=== PATIENT | female | born 1970 | race Caucasian/White ===

== ENCOUNTER 2019-06-13 09:08 | Outpatient (CLI) | payer OTHER, BC ==
[2019-06-13 10:02] LABS: BASOPHILS # (AUTO) 0.1 X10'3 (0-0.2); BASOPHILS % (AUTO) 1.8 % (0-1); EOSINOPHILS # (AUTO) 0.2 X10'3 (0-0.9); EOSINOPHILS % (AUTO) 4.2 % (0-6); HEMOGLOBIN 12.8 g/dl (12.0-16.0); LYMPHOCYTES # (AUTO) 1.8 X10'3 (1.1-4.8); LYMPHOCYTES % (AUTO) 37.1 % (21-51); MEAN CORPUSCULAR HEMOGLOBIN 31.3 PG (27.0-31.0); MEAN CORPUSCULAR HGB CONC 33.5 g/dL (33.0-36.5); MEAN CORPUSCULAR VOLUME 93.4 FL (78-98); MONOCYTES # (AUTO) 0.3 X10'3 (0-0.9); MONOCYTES % (AUTO) 6.2 % (2-12); NEUTROPHILS # (AUTO) 2.4 X10'3 (1.8-7.7); NEUTROPHILS % (AUTO) 50.7 % (42-75); PLATELET COUNT 278 X10'3 (140-440); RED BLOOD COUNT 4.07 X10'6 (4.20-5.60); RED CELL DISTRIBUTION WIDTH 12.3 % (11.5-14.5); WHITE BLOOD COUNT 4.7 X10'3 (4.5-11.0)
[2019-06-13 10:24] LABS: ALANINE AMINOTRANSFERASE 21 U/L (12-78); ALBUMIN 3.9 G/DL (3.4-5.0); ALBUMIN/GLOBULIN RATIO 1.2 (1.1-1.5); ALKALINE PHOSPHATASE 47 IU/L (46-116); ANION GAP 6 (8-16); ASPARTATE AMINO TRANSFERASE 19 U/L (10-37); BILIRUBIN,TOTAL 0.3 MG/DL (0.1-1.0); BLOOD UREA NITROGEN 13 MG/DL (7-18); BUN/CREATININE RATIO 15.3 (6.6-38.0); CALCIUM 8.9 MG/DL (8.5-10.1); CHLORIDE 108 MMOL/L (99-107); CHOL/HDL RATIO 3.3 (0.00-4.99); CHOLESTEROL 231 MG/DL (0-200); CREATININE 0.85 MG/DL (0.40-0.90); GLUCOSE 81 MG/DL (70-104); HDL CHOLESTEROL 69 MG/DL (35-60); LDL CHOLESTEROL 141 MG/DL (50-100); POTASSIUM 4.2 MMOL/L (3.5-5.1); SODIUM 147 MMOL/L (135-145); TOTAL CARBON DIOXIDE 33.1 MMOL/L (24-32); TOTAL PROTEIN 7.2 G/DL (6.4-8.2); TRIGLYCERIDES 65 MG/DL (20-135); eGFR 71 ML/MIN
[2019-06-14 13:10] LABS: ESTRADIOL <6.0 pg/mL (.); FSH, SERUM 98.2 mIU/mL (.); LUTEINIZING HORMONE 55.7 mIU/mL (.)
== END 2019-06-13 23:59 | disposition home or self-care (01) ==
LOC: LAB 09:08
PROVIDERS: ATTEND Family Medicine
DX: Z01.419 Encounter for gynecological examination (general) (routine) without abnormal findings (principal); I10 Essential (primary) hypertension; F17.200 Nicotine dependence, unspecified, uncomplicated
CPT/HCPCS: 36415; 80053; 80061; 82306; 82607; 82670; 82746; 83001; 83002; 83036; 84439; 84443; 85025

== ENCOUNTER 2019-12-12 11:53 | Outpatient (CLI) | payer OTHER, BC ==
[2019-12-12 13:27] LABS: BASOPHILS # (AUTO) 0.1 X10'3 (0-0.2); BASOPHILS % (AUTO) 0.9 % (0-1); EOSINOPHILS # (AUTO) 0.1 X10'3 (0-0.9); EOSINOPHILS % (AUTO) 1.9 % (0-6); HEMATOCRIT 40.9 % (35.0-45.0); HEMOGLOBIN 13.6 g/dl (12.0-16.0); LYMPHOCYTES # (AUTO) 2.2 X10'3 (1.1-4.8); LYMPHOCYTES % (AUTO) 38.5 % (21-51); MEAN CORPUSCULAR HEMOGLOBIN 30.5 PG (27.0-31.0); MEAN CORPUSCULAR HGB CONC 33.3 g/dL (33.0-36.5); MEAN CORPUSCULAR VOLUME 91.7 FL (78-98); MEAN PLATELET VOLUME 7.1 FL (7.4-10.4); MONOCYTES # (AUTO) 0.4 X10'3 (0-0.9); NEUTROPHILS # (AUTO) 2.9 X10'3 (1.8-7.7); NEUTROPHILS % (AUTO) 51.7 % (42-75); PLATELET COUNT 295 X10'3 (140-440); RED BLOOD COUNT 4.46 X10'6 (4.20-5.60); RED CELL DISTRIBUTION WIDTH 12.1 % (11.5-14.5); WHITE BLOOD COUNT 5.7 X10'3 (4.5-11.0)
[2019-12-12 13:46] LABS: ALANINE AMINOTRANSFERASE 11 U/L (12-78); ALBUMIN 4.4 G/DL (3.4-5.0); ALBUMIN/GLOBULIN RATIO 1.4 (1.1-1.5); ALKALINE PHOSPHATASE 63 IU/L (46-116); ANION GAP 7 (8-16); ASPARTATE AMINO TRANSFERASE 18 U/L (10-37); BILIRUBIN,TOTAL 0.4 MG/DL (0.1-1.0); BLOOD UREA NITROGEN 15 MG/DL (7-18); CALCIUM 9.2 MG/DL (8.5-10.1); CHLORIDE 104 MMOL/L (99-107); CREATININE 0.79 MG/DL (0.40-0.90); GLUCOSE 95 MG/DL (70-104); POTASSIUM 4.5 MMOL/L (3.5-5.1); SODIUM 139 MMOL/L (135-145); TOTAL CARBON DIOXIDE 28.1 MMOL/L (24-32); TOTAL PROTEIN 7.5 G/DL (6.4-8.2); eGFR 77 ML/MIN
[2019-12-14 10:15] LABS: ESTRADIOL 12.1 pg/mL (.); PROGESTERONE <0.1 ng/mL (.)
[2019-12-14 13:57] LABS: INSULIN 7.5 uIU/mL (2.6-24.9)
[2019-12-15 15:08] LABS: TESTOSTERONE, FREE, DIRECT 0.8 pg/mL (0.0-4.2)
[2019-12-17 14:50] LABS: ESTRONE, SERUM 139 pg/mL (.)
== END 2019-12-12 23:59 | disposition home or self-care (01) ==
LOC: LAB 11:53
PROVIDERS: ATTEND Obstetrics & Gynecology
DX: Z78.0 Asymptomatic menopausal state (principal)
CPT/HCPCS: 36415; 80053; 82670; 82679; 83525; 84144; 84402; 84403; 84439; 84443; 85025

== ENCOUNTER 2020-06-12 09:12 | Outpatient (CLI) | payer BC ==
[2020-06-12 10:45] LABS: BASOPHILS # (AUTO) 0.1 X10'3 (0-0.2); BASOPHILS % (AUTO) 1.2 % (0-1); EOSINOPHILS # (AUTO) 0.2 X10'3 (0-0.9); EOSINOPHILS % (AUTO) 3.4 % (0-6); HEMATOCRIT 38.8 % (35.0-45.0); HEMOGLOBIN 12.9 g/dl (12.0-16.0); LYMPHOCYTES # (AUTO) 1.8 X10'3 (1.1-4.8); LYMPHOCYTES % (AUTO) 35.9 % (21-51); MEAN CORPUSCULAR HEMOGLOBIN 30.8 PG (27.0-31.0); MEAN CORPUSCULAR HGB CONC 33.3 g/dL (33.0-36.5); MEAN CORPUSCULAR VOLUME 92.5 FL (78-98); MEAN PLATELET VOLUME 7.1 FL (7.4-10.4); MONOCYTES # (AUTO) 0.4 X10'3 (0-0.9); MONOCYTES % (AUTO) 7.4 % (2-12); NEUTROPHILS # (AUTO) 2.6 X10'3 (1.8-7.7); NEUTROPHILS % (AUTO) 52.1 % (42-75); PLATELET COUNT 261 X10'3 (140-440); RED CELL DISTRIBUTION WIDTH 12.6 % (11.5-14.5)
[2020-06-12 11:01] LABS: ALANINE AMINOTRANSFERASE 19 U/L (12-78); ALBUMIN 3.9 G/DL (3.4-5.0); ALBUMIN/GLOBULIN RATIO 1.2 (1.1-1.5); ALKALINE PHOSPHATASE 49 IU/L (46-116); ANION GAP 4 (8-16); ASPARTATE AMINO TRANSFERASE 18 U/L (10-37); BILIRUBIN,TOTAL 0.2 MG/DL (0.1-1.0); BLOOD UREA NITROGEN 18 MG/DL (7-18); BUN/CREATININE RATIO 23.1 (6.6-38.0); CALCIUM 8.8 MG/DL (8.5-10.1); CHLORIDE 105 MMOL/L (99-107); CHOLESTEROL 247 MG/DL (0-200); CREATININE 0.78 MG/DL (0.40-0.90); GLUCOSE 86 MG/DL (70-104); HDL CHOLESTEROL 62 MG/DL (35-60); LDL CHOLESTEROL 156 MG/DL (50-100); POTASSIUM 4.6 MMOL/L (3.5-5.1); SODIUM 140 MMOL/L (135-145); TOTAL CARBON DIOXIDE 31.5 MMOL/L (24-32); TOTAL PROTEIN 7.1 G/DL (6.4-8.2); TRIGLYCERIDES 68 MG/DL (20-135); eGFR 78 ML/MIN
[2020-06-12 11:10] LABS: RHEUM FACTOR QUAL REFLEX TITER NEGATIVE (Neg)
== END 2020-06-12 23:59 | disposition home or self-care (01) ==
LOC: LAB 09:12
PROVIDERS: ATTEND Family Medicine
DX: Z00.00 Encounter for general adult medical examination without abnormal findings (principal); M79.10 Myalgia, unspecified site
CPT/HCPCS: 36415; 80053; 80061; 84443; 85025; 85651; 86038; 86430

== ENCOUNTER 2020-09-09 15:42 | Outpatient (CLI) | payer BC | END 2020-09-09 23:59 | disposition home or self-care (01) | LOC: RAD 15:42 | PROVIDERS: ATTEND Family Medicine | DX: M25.511 Pain in right shoulder (principal) | CPT/HCPCS: 73030 ==

== ENCOUNTER 2020-09-12 08:16 | Emergency (ER) | payer BC ==
[~2020-09-12] VITALS: Ht 171.4 cm; Wt 67.0 kg
[2020-09-12 08:19] VITALS: BP 127/99
[2020-09-12] MEDS ORDERED: ketorolac trometh. 30mg/ml inj. IM ONE (09:20)
== END 2020-09-12 09:59 | disposition home or self-care (01) ==
LOC: ER 08:17 → EEVIPCON 08:17 → ER 09:59
DX: G89.29 Other chronic pain (principal); M25.511 Pain in right shoulder; M79.601 Pain in right arm
CPT/HCPCS: 96372; 99283; J1885

== ENCOUNTER 2020-12-12 05:42 | Day surgery (SDC) | payer BC ==
[2020-12-05 11:00] LABS: EOSINOPHILS # (AUTO) 0.1 X10'3 (0-0.9); MEAN CORPUSCULAR HEMOGLOBIN 30.8 PG (27.0-31.0); MEAN CORPUSCULAR HGB CONC 33.3 g/dL (33.0-36.5); MEAN CORPUSCULAR VOLUME 92.6 FL (78-98); MONOCYTES # (AUTO) 0.3 X10'3 (0-0.9); MONOCYTES % (AUTO) 7.1 % (2-12); NEUTROPHILS # (AUTO) 2.1 X10'3 (1.8-7.7); NEUTROPHILS % (AUTO) 44.9 % (42-75); PRE OP HEMATOCRIT 36.6 % (35.0-45.0); PRE OP HEMOGLOBIN 12.2 g/dL (12.0-16.0); PRE OP PLATELET COUNT 262 X10'3 (140-440); RED BLOOD COUNT 3.95 X10'6 (4.20-5.60); RED CELL DISTRIBUTION WIDTH 11.6 % (11.5-14.5)
[2020-12-05 11:19] LABS: ALBUMIN/GLOBULIN RATIO 1.4 (1.1-1.5); ALKALINE PHOSPHATASE 48 IU/L (46-116); BLOOD UREA NITROGEN 17 MG/DL (7-18); BUN/CREATININE RATIO 21.5 (6.6-38.0); CALCIUM 8.7 MG/DL (8.5-10.1); CHLORIDE 105 MMOL/L (99-107); CREATININE 0.79 MG/DL (0.40-0.90); PRE OP ALT 16 U/L (30-65); PRE OP ANION GAP 8 (8-16); PRE OP AST 16 U/L (10-37); PRE OP BILIRUB, TOTAL 0.4 MG/DL (0.0-1.0); PRE OP GLUCOSE 95 MG/DL (70-104); PRE OP POTASSIUM 4.3 MMOL/L (3.4-5.1); PRE OP SODIUM 144 MMOL/L (135-145); TOTAL CARBON DIOXIDE 31.5 MMOL/L (24-32); TOTAL PROTEIN 6.9 G/DL (6.4-8.2); eGFR 76 ML/MIN
[~2020-12-12] VITALS: Ht 170.2 cm; Wt 65.4 kg
[2020-12-12] VITALS (11 sets, daily range): BP systolic 96–113; BP diastolic 47–77
[~2020-12-12 05:42] MED LIST: DULO30CA52 PO; LISI10TA4 PO; famotidine 20mg tablet PO ONE; ringers solution, lacted 1,000 ML IV SCH; scopolamine 1.5mg patch.TD72 TD ONE
[2020-12-12] MEDS ORDERED: triamcinolone acetonide 40mg/ml inj ONE (06:41)
[2020-12-12] MEDS ORDERED: epiNEPHrine 1 mg/ml 30ml MDV ONE (06:41)
[2020-12-12] MEDS ORDERED: LIDOcaine 1% W/epiNEPHrine 1:200,000 10ml vial ONE (06:42)
[2020-12-12] MEDS ORDERED: BUPIVAcaine/PF 2.5 mg/ml (0.25%) 30ml vial ONE (06:42)
[2020-12-12] MEDS ORDERED: cloNIDine hcl/PF 100mcg/ml inj ONE (07:05)
[2020-12-12] MEDS ORDERED: midazolam 2 mg/2 ml injection ONE (07:16)
[2020-12-12] MEDS ORDERED: fentaNYL /PF 50mcg/ml 5ml ampule ONE (07:16)
[2020-12-12] MEDS ORDERED: LIDOcaine 2% 5ml jelly ONE (07:18)
[2020-12-12] MEDS ORDERED: acetaminophen 1,000mg/100ml IV 100 ML IV PRN (07:25)
[2020-12-12] MEDS ORDERED: ondansetron/PF 4mg/2ml inj IV PRN (07:25)
[2020-12-12] MEDS ORDERED: ROPIVAcaine 0.5% (5mg/ml) 30ml vial ONE ×2 (07:25→08:04)
[2020-12-12] MEDS ORDERED: ringers solution, lacted 1,000 ML IV SCH (07:25)
[2020-12-12] MEDS ORDERED: morphine 4 MG/ML inj SYRINge IV PRN (07:25)
[2020-12-12] MEDS ORDERED: meperidine/PF 25mg/ml syringe IV PRN (07:25)
[2020-12-12] MEDS ORDERED: labetalol 20mg/4ml (5mg/ml) syringe IV PRN (07:25)
[2020-12-12] MEDS ORDERED: hydrALAZINE 20mg/ml inj. IV PRN (07:25)
[2020-12-12] MEDS ORDERED: proCHLORperazine 10 MG/2 ml inj IV PRN (07:25)
[2020-12-12] MEDS ORDERED: morphine 2 MG/ML inj. syringe IV PRN (07:25)
[2020-12-12] MEDS ORDERED: HYDROmorphone/PF 0.2 MG/ML SYRINGE IV PRN ×2 (07:25)
[2020-12-12] MEDS ORDERED: LIDOcaine 1%/PF 5ML 10 MG/ML VIAL ONE (08:04)
[2020-12-12] MEDS ORDERED: rocuronium 10mg/ml inj IV ONE (08:04)
[2020-12-12] MEDS ORDERED: ondansetron/PF 4mg/2ml inj ONE (08:04)
[2020-12-12] MEDS ORDERED: LIDOcaine 2% (20mg/ml) 5ml vial ONE (08:04)
[2020-12-12] MEDS ORDERED: ceFAZolin 1000mg inj ONE ×2 (08:04)
[2020-12-12] MEDS ORDERED: propofol inj 20 ML IV ONE (08:04)
[2020-12-12] MEDS ORDERED: dexamethasone sod phosphate 4mg/ml inj. ONE ×2 (08:04)
[2020-12-12] MEDS ORDERED: ePHEDrine 50MG/ML INJ. ONE (08:17)
[2020-12-12] MEDS ORDERED: 0.9 % SODIUM CHLORIDE 10 ML VIAL ONE (08:17)
[2020-12-12] MEDS ORDERED: neostigmine methylsulfate 1 MG/ML 10ml vial ONE (09:06)
[2020-12-12] MEDS ORDERED: glycopyrrolate 0.2mg/ml inj ONE (09:06)
[2020-12-12] MEDS ORDERED: ketorolac trometh. 30mg/ml inj. IV ONE (09:15)
--- NOTE | 2020-12-12 09:15 | NUR ---
Received from OR via [facility] , accompanied by Anesthesiologist TITI and report given by Anesthesiolgist. PATIENT WITH 20G PIV IN LEFT UE RUNNING LR AT 100.DENIES PAIN. RIGHT SHOUDLER DRESSING IS CDI. + CAP REFILL AND RADIAL PULSE PRESENT. DENIES PAIN AT THIS TIME. SLING IN PLACE TO RIGHT UE. 10L MASK ON WITH 100% SATURATIONS. Addendum: 12/12/20 at 6441 by Britton Mahan RN, RN Amended: Links added.
[2020-12-12] MEDS ORDERED: oxyCODONE/APAP 10/325mg tablet PO PRN (09:30)
--- NOTE | 2020-12-12 10:45 | NUR ---
ALL CRITERIA FOR GOING HOME HAS BEEN ACHIEVED. VSS. DENIES PAIN. RIGHT SLING PRESENT AND ARM WITH + RADIAL PULSE PRESENT. WHEELCHAIR RIDE TO VEHICLE WHERE PATIENT GOT INTO VEHICLE WITH CGA. PATIENTS SPOUSE DROVE PATIENT HOME. PRESCRIPTION IN HAND AND SENT TO PHARMACY TO DROP OFF. ALL BELONGINGS WENT WITH PATIENT WELL. VSS Addendum: 12/12/20 at 1159 by Britton Mahan RN, RN Amended: Links added.
== END 2020-12-12 10:45 | disposition home or self-care (01) ==
LOC: PAS 05:42 → EEVIPCON 07:30 → PAS 10:45
PROVIDERS: ATTEND Orthopaedic Surgery
DX: S46.011A Strain of muscle(s) and tendon(s) of the rotator cuff of right shoulder, initial encounter (principal); S43.431A Superior glenoid labrum lesion of right shoulder, initial encounter; M75.41 Impingement syndrome of right shoulder; M75.01 Adhesive capsulitis of right shoulder; M94.211 Chondromalacia, right shoulder; M65.811 Other synovitis and tenosynovitis, right shoulder; G89.18 Other acute postprocedural pain; I10 Essential (primary) hypertension; F41.9 Anxiety disorder, unspecified; J45.909 Unspecified asthma, uncomplicated; Z98.890 Other specified postprocedural states; Z79.899 Other long term (current) drug therapy; Z72.89 Other problems related to lifestyle; Z20.822 Contact with and (suspected) exposure to COVID-19; X58.XXXA Exposure to other specified factors, initial encounter; Y93.89 Activity, other specified; Y92.89 Other specified places as the place of occurrence of the external cause; Y99.8 Other external cause status
CPT/HCPCS: 29823; 29826; 36415; 64415; 76942; 80053; 82948; 85025; 87635; 93005; J0131; J0171; J0690; J0735; J1100; J1885; J2001; J2250; J2405; J2704; J2710; J3010; J3301; J3490; J7120; A4215; A4565; A4618; A6253; A6449; A7000; J2795

== ENCOUNTER 2021-06-18 11:23 | Outpatient (CLI) | payer BC ==
[~2021-06-18 11:23] MED LIST changes: +LISI10TA27 PO; -LISI10TA4 PO; -famotidine 20mg tablet PO ONE; -ringers solution, lacted 1,000 ML IV SCH; -scopolamine 1.5mg patch.TD72 TD ONE
[2021-06-18 11:58] LABS: EOSINOPHILS # (AUTO) 0.1 X10'3 (0-0.9); EOSINOPHILS % (AUTO) 2.7 % (0-6); HEMATOCRIT 39.1 % (35.0-45.0); LYMPHOCYTES # (AUTO) 1.9 X10'3 (1.1-4.8); MEAN CORPUSCULAR HEMOGLOBIN 31.2 PG (27.0-31.0); MEAN CORPUSCULAR HGB CONC 33.3 g/dL (33.0-36.5); MEAN CORPUSCULAR VOLUME 93.6 FL (78-98); MEAN PLATELET VOLUME 7.1 FL (7.4-10.4); MONOCYTES # (AUTO) 0.4 X10'3 (0-0.9); MONOCYTES % (AUTO) 7.6 % (2-12); NEUTROPHILS # (AUTO) 2.4 X10'3 (1.8-7.7); NEUTROPHILS % (AUTO) 49.7 % (42-75); PLATELET COUNT 286 X10'3 (140-440); RED BLOOD COUNT 4.17 X10'6 (4.20-5.60); RED CELL DISTRIBUTION WIDTH 12.5 % (11.5-14.5); WHITE BLOOD COUNT 4.8 X10'3 (4.5-11.0)
[2021-06-19 10:57] LABS: ESTRADIOL <5.0 pg/mL (.); PROGESTERONE <0.1 ng/mL (.)
== END 2021-06-18 23:59 | disposition home or self-care (01) ==
LOC: LAB 11:23
DX: Z13.6 Encounter for screening for cardiovascular disorders (principal); N95.1 Menopausal and female climacteric states; R53.83 Other fatigue; R53.1 Weakness; E55.9 Vitamin D deficiency, unspecified; E53.9 Vitamin B deficiency, unspecified; E03.9 Hypothyroidism, unspecified; Z79.890 Hormone replacement therapy
CPT/HCPCS: 36415; 82670; 84144; 84410; 85025

== ENCOUNTER 2021-07-08 08:30 | Outpatient (CLI) | payer BC ==
[2021-07-08 09:06] LABS: BASOPHILS # (AUTO) 0.1 X10'3 (0-0.2); BASOPHILS % (AUTO) 1.1 % (0-1); EOSINOPHILS # (AUTO) 0.1 X10'3 (0-0.9); HEMATOCRIT 40.2 % (35.0-45.0); HEMOGLOBIN 13.3 g/dl (12.0-16.0); LYMPHOCYTES % (AUTO) 44.2 % (21-51); MEAN CORPUSCULAR HEMOGLOBIN 30.9 PG (27.0-31.0); MEAN CORPUSCULAR HGB CONC 33.1 g/dL (33.0-36.5); MEAN CORPUSCULAR VOLUME 93.2 FL (78-98); MEAN PLATELET VOLUME 7.2 FL (7.4-10.4); MONOCYTES # (AUTO) 0.3 X10'3 (0-0.9); MONOCYTES % (AUTO) 6.7 % (2-12); NEUTROPHILS # (AUTO) 2.1 X10'3 (1.8-7.7); PLATELET COUNT 289 X10'3 (140-440); RED BLOOD COUNT 4.32 X10'6 (4.20-5.60); RED CELL DISTRIBUTION WIDTH 12.3 % (11.5-14.5); WHITE BLOOD COUNT 4.6 X10'3 (4.5-11.0)
[2021-07-08 09:26] LABS: ALANINE AMINOTRANSFERASE 20 U/L (12-78); ALBUMIN 4.1 G/DL (3.4-5.0); ALBUMIN/GLOBULIN RATIO 1.3 (1.1-1.5); ALKALINE PHOSPHATASE 73 IU/L (46-116); ASPARTATE AMINO TRANSFERASE 18 U/L (10-37); BILIRUBIN,TOTAL 0.4 MG/DL (0.1-1.0); BLOOD UREA NITROGEN 18 MG/DL (7-18); BUN/CREATININE RATIO 20.7 (6.6-38.0); CALCIUM 8.5 MG/DL (8.5-10.1); CHLORIDE 104 MMOL/L (99-107); CHOL/HDL RATIO 4.2 (0.00-4.99); CHOLESTEROL 291 MG/DL (0-200); CREATININE 0.87 MG/DL (0.40-0.90); GLUCOSE 94 MG/DL (70-104); HDL CHOLESTEROL 69 MG/DL (35-60); LDL CHOLESTEROL 188 MG/DL (50-100); POTASSIUM 4.4 MMOL/L (3.5-5.1); TOTAL CARBON DIOXIDE 28.4 MMOL/L (24-32); TOTAL PROTEIN 7.3 G/DL (6.4-8.2); TRIGLYCERIDES 80 MG/DL (20-135); eGFR 68 ML/MIN
[2021-07-08 09:33] LABS: ANION GAP 8 (8-16); SODIUM 140 MMOL/L (135-145)
== END 2021-07-08 23:59 | disposition home or self-care (01) ==
LOC: LAB 08:30
PROVIDERS: ATTEND Family Medicine
DX: Z00.00 Encounter for general adult medical examination without abnormal findings (principal); I10 Essential (primary) hypertension
CPT/HCPCS: 36415; 80053; 80061; 84443; 85025

== ENCOUNTER 2021-07-16 13:56 | Outpatient (CLI) | payer BC | END 2021-07-16 23:59 | disposition home or self-care (01) | LOC: RAD 13:56 | PROVIDERS: ATTEND Family Medicine | DX: M47.22 Other spondylosis with radiculopathy, cervical region (principal) | CPT/HCPCS: 72141 ==

== ENCOUNTER 2021-11-09 09:27 | Emergency (ER) | payer BC ==
[~2021-11-09] VITALS: Ht 170.2 cm; Wt 69.6 kg
[2021-11-09 09:31] VITALS: BP 112/65
[2021-11-09] MEDS ORDERED: HYDR-3972 PO (12:08)
== END 2021-11-09 12:25 | disposition home or self-care (01) ==
LOC: EEVIPCON 09:27 → ER 09:27
DX: S00.83XA Contusion of other part of head, initial encounter (principal); S60.222A Contusion of left hand, initial encounter; S60.221A Contusion of right hand, initial encounter; R51.9 Headache, unspecified; Z79.899 Other long term (current) drug therapy; W19.XXXA Unspecified fall, initial encounter; Y93.02 Activity, running; Y92.89 Other specified places as the place of occurrence of the external cause; Y99.8 Other external cause status
CPT/HCPCS: 70450; 70486; 99284

== ENCOUNTER 2022-07-07 11:45 | Outpatient (CLI) | payer BC ==
[2022-07-07 12:42] LABS: BASOPHILS # (AUTO) 0.1 X10'3 (0-0.2); BASOPHILS % (AUTO) 0.9 % (0-1); EOSINOPHILS # (AUTO) 0.1 X10'3 (0-0.9); EOSINOPHILS % (AUTO) 1.1 % (0-6); HEMATOCRIT 40.1 % (35.0-45.0); HEMOGLOBIN 13.5 g/dl (12.0-16.0); LYMPHOCYTES % (AUTO) 34.6 % (21-51); MEAN CORPUSCULAR HEMOGLOBIN 30.8 PG (27.0-31.0); MEAN CORPUSCULAR HGB CONC 33.6 g/dL (33.0-36.5); MEAN CORPUSCULAR VOLUME 91.6 FL (78-98); MEAN PLATELET VOLUME 7.1 FL (7.4-10.4); MONOCYTES # (AUTO) 0.4 X10'3 (0-0.9); MONOCYTES % (AUTO) 6.2 % (2-12); NEUTROPHILS # (AUTO) 3.4 X10'3 (1.8-7.7); NEUTROPHILS % (AUTO) 57.2 % (42-75); PLATELET COUNT 277 X10'3 (140-440); RED BLOOD COUNT 4.38 X10'6 (4.20-5.60); RED CELL DISTRIBUTION WIDTH 13.2 % (11.5-14.5); WHITE BLOOD COUNT 5.9 X10'3 (4.5-11.0)
[2022-07-07 12:56] LABS: ALANINE AMINOTRANSFERASE 19 U/L (12-78); ALBUMIN 4.2 G/DL (3.4-5.0); ALBUMIN/GLOBULIN RATIO 1.2 (1.1-1.5); ALKALINE PHOSPHATASE 56 IU/L (46-116); ANION GAP 9 (8-16); ASPARTATE AMINO TRANSFERASE 16 U/L (10-37); BILIRUBIN,TOTAL 0.5 MG/DL (0.1-1.0); BLOOD UREA NITROGEN 16 MG/DL (7-18); BUN/CREATININE RATIO 19.5 (6.6-38.0); CHLORIDE 102 MMOL/L (99-107); CREATININE 0.82 MG/DL (0.40-0.90); GLUCOSE 98 MG/DL (70-104); SODIUM 140 MMOL/L (135-145); TOTAL CARBON DIOXIDE 28.7 MMOL/L (24-32); TOTAL PROTEIN 7.6 G/DL (6.4-8.2); eGFR 73 ML/MIN
[2022-07-07 13:05] LABS: CHOL/HDL RATIO 4.3 (0.00-4.99); CHOLESTEROL 292 MG/DL (0-200); HDL CHOLESTEROL 68 MG/DL (35-60); LDL CHOLESTEROL 184 MG/DL (50-100); TRIGLYCERIDES 118 MG/DL (20-135)
[2022-07-07 13:54] LABS: RHEUM FACTOR QUAL REFLEX TITER NEGATIVE (Neg)
== END 2022-07-07 23:59 | disposition home or self-care (01) ==
LOC: LAB 11:45
PROVIDERS: ATTEND Nurse Practitioner
DX: R68.82 Decreased libido (principal); M25.50 Pain in unspecified joint; R79.89 Other specified abnormal findings of blood chemistry; E78.5 Hyperlipidemia, unspecified; R53.83 Other fatigue
CPT/HCPCS: 36415; 80053; 80061; 84402; 84403; 84443; 85025; 85651; 86038; 86430

== ENCOUNTER 2023-04-25 09:36 | Outpatient (CLI) | payer BC ==
[2023-04-25 10:04] LABS: BASOPHILS # (AUTO) 0.1 X10'3 (0-0.2); BASOPHILS % (AUTO) 1.3 % (0-1); EOSINOPHILS # (AUTO) 0.1 X10'3 (0-0.9); EOSINOPHILS % (AUTO) 1.7 % (0-6); HEMATOCRIT 42.8 % (35.0-45.0); HEMOGLOBIN 14.3 g/dl (12.0-16.0); LYMPHOCYTES # (AUTO) 1.7 X10'3 (1.1-4.8); LYMPHOCYTES % (AUTO) 33.3 % (21-51); MEAN CORPUSCULAR HEMOGLOBIN 31.1 PG (27.0-31.0); MEAN CORPUSCULAR HGB CONC 33.5 g/dL (33.0-36.5); MEAN CORPUSCULAR VOLUME 92.8 FL (78-98); MEAN PLATELET VOLUME 6.9 FL (7.4-10.4); MONOCYTES # (AUTO) 0.4 X10'3 (0-0.9); MONOCYTES % (AUTO) 7.8 % (2-12); NEUTROPHILS # (AUTO) 2.9 X10'3 (1.8-7.7); NEUTROPHILS % (AUTO) 55.9 % (42-75); PLATELET COUNT 268 X10'3 (140-440); RED BLOOD COUNT 4.61 X10'6 (4.20-5.60); RED CELL DISTRIBUTION WIDTH 12.4 % (11.5-14.5); WHITE BLOOD COUNT 5.2 X10'3 (4.5-11.0)
[2023-04-25 10:40] LABS: ALANINE AMINOTRANSFERASE 22 U/L (12-78); ALBUMIN 4.3 G/DL (3.4-5.0); ALBUMIN/GLOBULIN RATIO 1.3 (1.1-1.5); ALKALINE PHOSPHATASE 54 IU/L (46-116); ANION GAP 9 (8-16); ASPARTATE AMINO TRANSFERASE 22 U/L (10-37); BILIRUBIN,TOTAL 0.7 MG/DL (0.1-1.0); BLOOD UREA NITROGEN 10 MG/DL (7-18); BUN/CREATININE RATIO 10.9 (10.0-20.0); CALCIUM 9.3 MG/DL (8.5-10.1); CHLORIDE 104 MMOL/L (99-107); CHOL/HDL RATIO 3.9 (0.00-4.99); CHOLESTEROL 279 MG/DL (0-200); CREATININE 0.92 MG/DL (0.40-0.90); GLUCOSE 104 MG/DL (70-104); HDL CHOLESTEROL 71 MG/DL (35-60); LDL CHOLESTEROL 160 MG/DL (50-100); POTASSIUM 4.2 MMOL/L (3.5-5.1); SODIUM 143 MMOL/L (135-145); TOTAL CARBON DIOXIDE 30.3 MMOL/L (24-32); TOTAL PROTEIN 7.5 G/DL (6.4-8.2); TRIGLYCERIDES 97 MG/DL (20-135); eGFR 64 ML/MIN
== END 2023-04-25 23:59 | disposition home or self-care (01) ==
LOC: LAB 09:36
PROVIDERS: ATTEND Nurse Practitioner
DX: R79.89 Other specified abnormal findings of blood chemistry (principal); E78.5 Hyperlipidemia, unspecified; R53.83 Other fatigue
CPT/HCPCS: 36415; 80053; 80061; 84443; 85025

== ENCOUNTER 2023-07-12 11:16 | Outpatient (CLI) | payer BC | END 2023-07-12 23:59 | disposition home or self-care (01) | LOC: RAD 11:16 | PROVIDERS: ATTEND Podiatrist Foot & Ankle Surgery | DX: G57.62 Lesion of plantar nerve, left lower limb (principal); M25.872 Other specified joint disorders, left ankle and foot | CPT/HCPCS: 73718 ==

== ENCOUNTER 2023-10-19 05:48 | Day surgery (SDC) | payer BC ==
[2023-10-13 16:28] LABS: BILIRUBIN,URINE NEGATIVE (Neg); CLARITY,URINE CLEAR (Clear); COLOR,URINE YELLOW (Yellow); GLUCOSE, URINE NEGATIVE (Neg); KETONES,URINE NEGATIVE (Neg); LEUKOCYTE ESTERASE ,URINE NEGATIVE (Neg); NITRITES, URINE NEGATIVE (Neg); OCCULT BLOOD,URINE SMALL (Neg); PH,URINE 6.5 (4.8-8.0); PROTEIN,URINE NEGATIVE (Neg); UROBILINOGEN,URINE 0.2 E.U/dL (0.2-1.0)
[2023-10-13 16:31] LABS: BASOPHILS % (AUTO) 0.6 % (0-1); EOSINOPHILS # (AUTO) 0.1 X10'3 (0-0.9); EOSINOPHILS % (AUTO) 1.7 % (0-6); HEMATOCRIT 41.4 % (35.0-45.0); HEMOGLOBIN 13.8 g/dl (12.0-16.0); LYMPHOCYTES # (AUTO) 2.2 X10'3 (1.1-4.8); LYMPHOCYTES % (AUTO) 35.1 % (21-51); MEAN CORPUSCULAR HEMOGLOBIN 31.8 PG (27.0-31.0); MEAN CORPUSCULAR HGB CONC 33.5 g/dL (33.0-36.5); MEAN CORPUSCULAR VOLUME 94.9 FL (78-98); MEAN PLATELET VOLUME 7.1 FL (7.4-10.4); MONOCYTES # (AUTO) 0.5 X10'3 (0-0.9); NEUTROPHILS # (AUTO) 3.4 X10'3 (1.8-7.7); NEUTROPHILS % (AUTO) 54.6 % (42-75); PLATELET COUNT 272 X10'3 (140-440); RED BLOOD COUNT 4.36 X10'6 (4.20-5.60); RED CELL DISTRIBUTION WIDTH 11.7 % (11.5-14.5); WHITE BLOOD COUNT 6.3 X10'3 (4.5-11.0)
[2023-10-13 16:33] LABS: UA COLLECTION TYPE CLN CATCH MIDSTREAM
[2023-10-13 16:34] LABS: BACTERIA,URINE NONE SEEN /HPF (Neg); SQUAMOUS EPITHELIAL CELL,UR FEW /LPF (FEW); WBC,URINE 0-4 /HPF (0-4)
[2023-10-13 16:45] LABS: ALANINE AMINOTRANSFERASE 22 U/L (12-78); ALBUMIN 3.8 G/DL (3.4-5.0); ALBUMIN/GLOBULIN RATIO 1.1 (1.1-1.5); ALKALINE PHOSPHATASE 84 IU/L (46-116); ANION GAP 5 (8-16); ASPARTATE AMINO TRANSFERASE 21 U/L (10-37); BILIRUBIN,TOTAL 0.2 MG/DL (0.1-1.0); BLOOD UREA NITROGEN 24 MG/DL (7-18); BUN/CREATININE RATIO 29.3 (10.0-20.0); CALCIUM 8.9 MG/DL (8.5-10.1); CHLORIDE 103 MMOL/L (99-107); CREATININE 0.82 MG/DL (0.40-0.90); GLUCOSE 102 MG/DL (70-104); POTASSIUM 4.3 MMOL/L (3.5-5.1); SODIUM 139 MMOL/L (135-145); TOTAL CARBON DIOXIDE 31.1 MMOL/L (24-32); TOTAL PROTEIN 7.2 G/DL (6.4-8.2); eGFR 72 ML/MIN
[2023-10-19] VITALS (10 sets, daily range): BP systolic 96–134; BP diastolic 61–91; PULSE 79–99; RESP 11–19; TEMP 97.3; O2SAT 95–99
[~2023-10-19] VITALS: Ht 170.2 cm; Wt 72.0 kg
[~2023-10-19 05:48] MED LIST changes: +ALPR1TAB2 PO; +ceFAZolin 1GM/D5W- ADD-VANTAGE 50 ML IV ONE; +cefazolin 2gm/D5W 100mL 100 ML IV ONE; +famotidine 20mg tablet PO ONE; +ringers solution, lacted 1,000 ML IV SCH
[2023-10-19] MEDS ORDERED: bacitracin 15gm ointment TP ONE ×2 (06:41→06:42)
[2023-10-19] MEDS ORDERED: BUPIVAcaine/PF 2.5mg/ml (0.25%) 10ml vial ONE (06:41)
[2023-10-19] MEDS ORDERED: BUPIVAcaine/PF 2.5mg/ml (0.25%) 10ml vial IJ ONE (07:00)
[2023-10-19] MEDS ORDERED: dexamethasone 4mg/ml inj IM ONE (07:00)
[2023-10-19] MEDS ORDERED: scopolamine 1MG/72H patch 1 PATCH PATCH.TD.3 TD ONE (07:20)
[2023-10-19] MEDS ORDERED: sevoflurane 250ml liquid IH ONE (07:31)
[2023-10-19] MEDS ORDERED: morphine 2 MG/ML inj. syringe IV PRN (07:35)
[2023-10-19] MEDS ORDERED: hydrALAZINE 20mg/ml inj. IV PRN (07:35)
[2023-10-19] MEDS ORDERED: ringers solution, lacted 1,000 ML IV SCH (07:35)
[2023-10-19] MEDS ORDERED: acetaminophen 1,000mg/100ml IV 100 ML IV ONE (07:35)
[2023-10-19] MEDS ORDERED: labetalol 20mg/4ml (5mg/ml) syringe IV PRN (07:35)
[2023-10-19] MEDS ORDERED: proCHLORperazine 10 MG/2 ml inj IV PRN (07:35)
[2023-10-19] MEDS ORDERED: meperidine/PF 25mg/ml syringe IV PRN (07:35)
[2023-10-19] MEDS ORDERED: morphine 4 MG/ML inj SYRINge IV PRN (07:35)
[2023-10-19] MEDS ORDERED: ketorolac trometh. 30mg/ml inj. IV ONE (07:35)
[2023-10-19] MEDS ORDERED: HYDROmorphone/PF 0.2 MG/ML SYRINGE IV PRN ×2 (07:35)
[2023-10-19] MEDS ORDERED: ondansetron/PF 4mg/2ml inj IV PRN (07:35)
[2023-10-19] MEDS ORDERED: fentaNYL/PF 50MCG/1 ML 2ML syringe ONE (07:40)
[2023-10-19] MEDS ORDERED: midazolam 1 mg/ML 2ml injection ONE (07:48)
[2023-10-19] MEDS ORDERED: ondansetron/PF 4mg/2ml inj ONE (07:49)
[2023-10-19] MEDS ORDERED: propofol inj 20 ML IV ONE (07:49)
[2023-10-19] MEDS ORDERED: dexamethasone sod phosphate 4mg/ml inj. ONE (07:49)
[2023-10-19] MEDS ORDERED: LIDOcaine 2% (20mg/ml) 5ml vial ONE (07:49)
[2023-10-19] MEDS ORDERED: HYDROcodone/acetaminophen 5mg/325mg tablet PO ONE (09:40)
== END 2023-10-19 10:06 | disposition home or self-care (01) ==
LOC: PAS 05:48
PROVIDERS: ATTEND Podiatrist Foot & Ankle Surgery
DX: G57.82 Other specified mononeuropathies of left lower limb (principal); I10 Essential (primary) hypertension; F41.9 Anxiety disorder, unspecified; F32.A Depression, unspecified; Z79.899 Other long term (current) drug therapy; Z98.890 Other specified postprocedural states; Z72.89 Other problems related to lifestyle
CPT/HCPCS: 28080; 36415; 80053; 81001; 82948; 85025; A6223; J0131; J0690; J1100; J1885; J2250; J2405; J2704; J3010; J3490; J7030; J7120; Z7506; Z7508; Z7512; A4215; A4615; A4618; A6449; A7000

== ENCOUNTER → 2023-12-28 | Outpatient (CLI) | payer BC ==
[~2023-12-28] MED LIST changes: -ceFAZolin 1GM/D5W- ADD-VANTAGE 50 ML IV ONE; -cefazolin 2gm/D5W 100mL 100 ML IV ONE; -famotidine 20mg tablet PO ONE; -ringers solution, lacted 1,000 ML IV SCH
[2023-12-28 08:53] LABS: BASOPHILS % (AUTO) 0.8 % (0-1); EOSINOPHILS % (AUTO) 1.1 % (0-6); HEMATOCRIT 41.2 % (35.0-45.0); LYMPHOCYTES # (AUTO) 1.6 X10'3 (1.1-4.8); LYMPHOCYTES % (AUTO) 36.3 % (21-51); MEAN CORPUSCULAR HGB CONC 33.9 g/dL (33.0-36.5); MEAN CORPUSCULAR VOLUME 94.6 FL (78-98); MEAN PLATELET VOLUME 6.7 FL (7.4-10.4); MONOCYTES # (AUTO) 0.4 X10'3 (0-0.9); MONOCYTES % (AUTO) 7.8 % (2-12); NEUTROPHILS # (AUTO) 2.5 X10'3 (1.8-7.7); PLATELET COUNT 260 X10'3 (140-440); RED BLOOD COUNT 4.36 X10'6 (4.20-5.60); RED CELL DISTRIBUTION WIDTH 12.6 % (11.5-14.5); WHITE BLOOD COUNT 4.5 X10'3 (4.5-11.0)
[2023-12-28 09:17] LABS: ALANINE AMINOTRANSFERASE 22 U/L (12-78); ALBUMIN 4.2 G/DL (3.4-5.0); ALBUMIN/GLOBULIN RATIO 1.3 (1.1-1.5); ALKALINE PHOSPHATASE 56 IU/L (46-116); ANION GAP 5 (8-16); ASPARTATE AMINO TRANSFERASE 19 U/L (10-37); BILIRUBIN,TOTAL 0.5 MG/DL (0.1-1.0); BLOOD UREA NITROGEN 12 MG/DL (7-18); CALCIUM 8.3 MG/DL (8.5-10.1); CHLORIDE 105 MMOL/L (99-107); CHOL/HDL RATIO 4.2 (0.00-4.99); CHOLESTEROL 300 MG/DL (0-200); CREATININE 0.92 MG/DL (0.40-0.90); GLUCOSE 97 MG/DL (70-104); HDL CHOLESTEROL 72 MG/DL (35-60); LDL CHOLESTEROL 159 MG/DL (50-100); POTASSIUM 4.2 MMOL/L (3.5-5.1); SODIUM 140 MMOL/L (135-145); THYROID STIMULATING HORMONE 0.51 ulU/ml (0.34-4.50); TOTAL CARBON DIOXIDE 29.8 MMOL/L (24-32); TOTAL PROTEIN 7.4 G/DL (6.4-8.2); TRIGLYCERIDES 139 MG/DL (20-135); eGFR 63 ML/MIN
== END | disposition home or self-care (01) ==
LOC: LAB 07:58
PROVIDERS: ATTEND Nurse Practitioner
DX: E78.5 Hyperlipidemia, unspecified (principal); N95.1 Menopausal and female climacteric states; R68.82 Decreased libido
CPT/HCPCS: 36415; 80053; 80061; 82670; 84144; 84402; 84403; 84443; 85025

== ENCOUNTER 2024-08-31 18:02 | Outpatient (CLI) | payer BC ==
[2024-08-31 18:35] LABS: BASOPHILS # (AUTO) 0.1 X10'3 (0-0.2); BASOPHILS % (AUTO) 0.8 % (0-1); EOSINOPHILS # (AUTO) 0.1 X10'3 (0-0.9); EOSINOPHILS % (AUTO) 1.2 % (0-6); HEMATOCRIT 37.1 % (35.0-45.0); HEMOGLOBIN 12.3 g/dl (12.0-16.0); LYMPHOCYTES # (AUTO) 2.7 X10'3 (1.1-4.8); LYMPHOCYTES % (AUTO) 42.1 % (21-51); MEAN CORPUSCULAR HEMOGLOBIN 31.1 PG (27.0-31.0); MEAN CORPUSCULAR HGB CONC 33.1 g/dL (33.0-36.5); MONOCYTES # (AUTO) 0.5 X10'3 (0-0.9); NEUTROPHILS # (AUTO) 3.2 X10'3 (1.8-7.7); NEUTROPHILS % (AUTO) 48.9 % (42-75); PLATELET COUNT 295 X10'3 (140-440); RED BLOOD COUNT 3.94 X10'6 (4.20-5.60); RED CELL DISTRIBUTION WIDTH 12.4 % (11.5-14.5); WHITE BLOOD COUNT 6.5 X10'3 (4.5-11.0)
[2024-09-03 07:09] LABS: ESTRADIOL <5.0 pg/mL (.); PROGESTERONE <0.1 ng/mL (.); TESTOSTERONE, SERUM <3 ng/dL (4-50)
== END 2024-08-31 23:59 | disposition home or self-care (01) ==
LOC: LAB 18:02
PROVIDERS: ATTEND Nurse Practitioner
DX: R53.83 Other fatigue (principal); N95.1 Menopausal and female climacteric states; R68.82 Decreased libido
CPT/HCPCS: 36415; 82670; 84144; 84402; 84403; 84550; 85025

== ENCOUNTER 2024-12-13 14:57 | Outpatient (CLI) | payer BC ==
[2024-12-13 15:31] LABS: BASOPHILS # (AUTO) 0.1 X10'3 (0-0.2); EOSINOPHILS # (AUTO) 0.1 X10'3 (0-0.9); EOSINOPHILS % (AUTO) 1.8 % (0-6); HEMATOCRIT 40.2 % (35.0-45.0); HEMOGLOBIN 13.4 g/dl (12.0-16.0); LYMPHOCYTES # (AUTO) 1.9 X10'3 (1.1-4.8); MEAN CORPUSCULAR HEMOGLOBIN 31.5 PG (27.0-31.0); MEAN CORPUSCULAR HGB CONC 33.2 g/dL (33.0-36.5); MEAN CORPUSCULAR VOLUME 94.7 FL (78-98); MONOCYTES # (AUTO) 0.4 X10'3 (0-0.9); NEUTROPHILS # (AUTO) 2.7 X10'3 (1.8-7.7); NEUTROPHILS % (AUTO) 52.2 % (42-75); PLATELET COUNT 287 X10'3 (140-440); RED BLOOD COUNT 4.25 X10'6 (4.20-5.60); RED CELL DISTRIBUTION WIDTH 12.5 % (11.5-14.5); WHITE BLOOD COUNT 5.1 X10'3 (4.5-11.0)
[2024-12-15 11:15] LABS: DEHYDROEPIANDROSTERONE SULFATE 24.5 ug/dL (29.4-220.5); ESTRADIOL 33.8 pg/mL (.); PROGESTERONE 0.5 ng/mL (.); TESTOSTERONE, SERUM 104 ng/dL (4-50)
== END 2024-12-13 23:59 | disposition home or self-care (01) ==
LOC: LAB 14:57
PROVIDERS: ATTEND Nurse Practitioner
DX: Z51.81 Encounter for therapeutic drug level monitoring (principal); N95.1 Menopausal and female climacteric states; R53.83 Other fatigue; R68.82 Decreased libido
CPT/HCPCS: 36415; 82627; 82670; 84144; 84402; 84403; 85025

== ENCOUNTER 2025-01-20 13:37 | Outpatient (CLI) | payer BC | END 2025-01-20 23:59 | disposition home or self-care (01) | LOC: RAD 13:37 | PROVIDERS: ATTEND Nurse Practitioner | DX: M18.11 Unilateral primary osteoarthritis of first carpometacarpal joint, right hand (principal); M79.641 Pain in right hand | CPT/HCPCS: 73130 ==

== ENCOUNTER 2025-01-21 09:51 | Outpatient (CLI) | payer BC ==
[2025-01-21 10:24] LABS: BASOPHILS % (AUTO) 0.7 % (0-1); EOSINOPHILS # (AUTO) 0.1 X10'3 (0-0.9); EOSINOPHILS % (AUTO) 1.3 % (0-6); HEMATOCRIT 42.6 % (35.0-45.0); HEMOGLOBIN 14.2 g/dl (12.0-16.0); LYMPHOCYTES # (AUTO) 1.9 X10'3 (1.1-4.8); LYMPHOCYTES % (AUTO) 36.1 % (21-51); MEAN CORPUSCULAR HEMOGLOBIN 31.2 PG (27.0-31.0); MEAN CORPUSCULAR HGB CONC 33.3 g/dL (33.0-36.5); MEAN CORPUSCULAR VOLUME 93.6 FL (78-98); MEAN PLATELET VOLUME 6.9 FL (7.4-10.4); MONOCYTES # (AUTO) 0.4 X10'3 (0-0.9); MONOCYTES % (AUTO) 8.4 % (2-12); NEUTROPHILS # (AUTO) 2.8 X10'3 (1.8-7.7); NEUTROPHILS % (AUTO) 53.5 % (42-75); PLATELET COUNT 272 X10'3 (140-440); RED BLOOD COUNT 4.55 X10'6 (4.20-5.60); RED CELL DISTRIBUTION WIDTH 12.5 % (11.5-14.5); WHITE BLOOD COUNT 5.3 X10'3 (4.5-11.0)
[2025-01-21 10:51] LABS: ALANINE AMINOTRANSFERASE 18 U/L (12-78); ALBUMIN 4.1 G/DL (3.4-5.0); ALBUMIN/GLOBULIN RATIO 1.2 (1.1-1.5); ALKALINE PHOSPHATASE 56 IU/L (46-116); ANION GAP 5 (8-16); ASPARTATE AMINO TRANSFERASE 14 U/L (10-37); BILIRUBIN,TOTAL 0.6 MG/DL (0.1-1.0); BLOOD UREA NITROGEN 14 MG/DL (7-18); BUN/CREATININE RATIO 19.2 (10.0-20.0); CALCIUM 8.8 MG/DL (8.5-10.1); CHLORIDE 104 MMOL/L (99-107); CHOL/HDL RATIO 3.8 (0.00-4.99); CHOLESTEROL 240 MG/DL (0-200); CREATININE 0.73 MG/DL (0.40-0.90); GLUCOSE 98 MG/DL (70-104); HDL CHOLESTEROL 64 MG/DL (35-60); LDL CHOLESTEROL 141 MG/DL (50-100); POTASSIUM 4.3 MMOL/L (3.5-5.1); SODIUM 141 MMOL/L (135-145); THYROID STIMULATING HORMONE 0.38 ulU/ml (0.34-4.50); TOTAL CARBON DIOXIDE 32.3 MMOL/L (24-32); TOTAL PROTEIN 7.6 G/DL (6.4-8.2); TRIGLYCERIDES 96 MG/DL (20-135); eGFR 82 ML/MIN
== END 2025-01-21 23:59 | disposition home or self-care (01) ==
LOC: LAB 09:51
PROVIDERS: ATTEND Nurse Practitioner
DX: R68.82 Decreased libido (principal); R53.83 Other fatigue; N95.1 Menopausal and female climacteric states; E78.5 Hyperlipidemia, unspecified
CPT/HCPCS: 36415; 80053; 80061; 84402; 84403; 84443; 85025

== ENCOUNTER 2025-02-22 06:55 | Outpatient (CLI) | payer BC ==
[~2025-02-22 06:55] MED LIST changes: +LIDOcaine 1%/PF 5ML 10 MG/ML VIAL ONE; +[UNRECOGNIZED DRUG - OTHER] IM ONE; +iohexol 300 MG/1 ML 50ml polymer ONE
--- NOTE | 2025-02-22 07:55 | RADIOLOGY REPORT ---
C-ARM FLUOROSCOPY: PROCEDURE: Right CMC injection FLUOROSCOPY TIME: 0.1 minute DAP: 1 mgy FINDINGS: Spot intraoperative C arm radiographs demonstrating right CMC injection. IMPRESSION: Please refer to surgical report for detailed findings.
== END 2025-02-22 23:59 | disposition home or self-care (01) ==
LOC: RAD 06:55
PROVIDERS: ATTEND Family Medicine Sports Medicine
DX: M79.641 Pain in right hand (principal); M18.11 Unilateral primary osteoarthritis of first carpometacarpal joint, right hand; Z79.899 Other long term (current) drug therapy; Z98.890 Other specified postprocedural states; Z72.89 Other problems related to lifestyle
CPT/HCPCS: 25246; J0702; J3490; Q9967

== ENCOUNTER 2025-06-04 15:11 | Outpatient (CLI) | payer BC ==
[~2025-06-04 15:11] MED LIST changes: -LIDOcaine 1%/PF 5ML 10 MG/ML VIAL ONE; -[UNRECOGNIZED DRUG - OTHER] IM ONE; -iohexol 300 MG/1 ML 50ml polymer ONE
--- NOTE | 2025-06-05 14:15 | RADIOLOGY REPORT ---
CLINICAL HISTORY: Right hand pain. Osteoarthritis of 1st carpometacarpal joint. TECHNIQUE: Multi sequence multi planar MRI images of the right hand were obtained without contrast, focused on the right thumb. COMPARISON: Radiographs of the right hand dated 01/20/2025. FINDINGS: There is signal loss on some sequences, particularly the fluid sensitive sequences, limiti ng evaluation. No evidence of acute fracture. Moderate arthritic changes are seen at the 1st carpomet acarpal joint with joint space narrowing and marginal osteophytes. There is mild dorsal subluxation o f the 1st metacarpal with respect to the trapezium. Limited evaluation of the ligamentous structures of the 1st carpometacarpal joint due to the signal loss on the fluid sensitive sequences. Flexor and extensor tendons appear intact. IMPRESSION: 1. Examination is limited due to the reasons described above. 2. Moderate arthritic changes of the 1st carpometacarpal joint. No acute bony abnormality identified. Mild dorsal subluxation of the 1st metacarpal with respect to the trapezium.
--- NOTE | 2025-06-05 19:01 | RADIOLOGY REPORT ---
EXAM: MR MRI UPPER EXTREMITY RIGHT INDICATION: Pain TECHNIQUE: Multisequence, multiplanar MRI of the right wrist was performed in the absence of gadolini um contrast material. Additional sequences were obtained and interpreted in conjunction with capri lara from 06/04/25 COMPARISON: MR MRI UPPER EXTREMITY RIGHT on DOS: 06/04/25 FINDINGS: CARPAL TUNNEL: The traversing flexor tendons are intact. Normal thickness of the overlying flexor ret inaculum. Normal signal intensity and morphology of the median nerve. FLEXOR TENDONS: Intact without tenosynovitis. EXTENSOR TENDONS: Intact without tenosynovitis. TRIANGULAR FIBROCARTILAGE: Intact. EXTRINSIC/INTRINSIC LIGAMENTS: Intact. JOINTS: Trace 1st carpometacarpal joint joint effusion. Severe asymmetric degenerative change of the 1st carpometacarpal joint. Severe joint space loss with the appearance of [id number] contact of the more volar aspect of the 1st carpometacarpal joint with underlying subchondral sclerosis of the base of the 1st metacarpal. As detailed on prior report, question minimal dorsal positioning/subluxation of the 1st metacarpal relative to the trapezium, which may be exaggerated secondary to patient positi oning BONES: Osteitis of the base of the 1st metacarpal and opposing osteitis of the trapezium. Subchondral cyst of the dorsal 2nd metacarpal head MUSCLES: Normal. NEUROVASCULAR: Normal signal intensity and morphology of the ulnar nerve at Guyon's canal. The radial neurovascular bundle is intact. OTHER: The surrounding soft tissues are unremarkable. IMPRESSION: 1. Severe degenerative change of the 1st carpometacarpal joint likely compatible with primary osteoar throsis.
== END 2025-06-04 23:59 | disposition home or self-care (01) ==
LOC: MRI 15:11
PROVIDERS: ATTEND Family Medicine Sports Medicine
DX: M18.11 Unilateral primary osteoarthritis of first carpometacarpal joint, right hand (principal); M25.841 Other specified joint disorders, right hand; M86.8X4 Other osteomyelitis, hand; M79.641 Pain in right hand; M25.441 Effusion, right hand; M77.9 Enthesopathy, unspecified
CPT/HCPCS: 73218

== ENCOUNTER 2025-06-21 06:38 | Outpatient (CLI) | payer BC ==
[~2025-06-21] VITALS: Ht 170.2 cm; Wt 70.3 kg
[2025-06-21] MEDS ORDERED: [UNRECOGNIZED DRUG - OTHER] IM ONE (06:40)
--- NOTE | 2025-06-21 09:27 | RADIOLOGY REPORT ---
ANGIO ARTHROGRAM (A) Date: 06/21/2025 07:18 AM Clinical History: PAIN IN RIGHT HAND Comparison: MR MRI UPPER EXTREMITY RIGHT on DOS: 06/05/25, MR MRI UPPER EXTREMITY RIGHT on DOS: 06/04/25, ANGIO ARTHROGRAM (A) on DOS: 02/22/25, MR MRI LOWER EXTREMITY LEFT on DOS: 07/12/23, SHOULDER, COMPLET E (MIN 2 VWS) on DOS: 09/09/20 Procedure: Verbal and written informed consent were obtained from the patient for the procedure of right hand f luoroscopically guided arthrogram, after the procedure, risks, and benefits of the procedure were exp lained to the patient. Risks include bleeding, infection, reaction to injected medications, and valentin ge to surrounding anatomic structures. The patient's questions were answered. The patient's most re cent medical history was reviewed. A time out was performed to verify the patient's name, date of , and correct location of the pro cedure, prior to initiation of the procedure. The patient was placed supine on the fluoroscopic table and the area overlying the right hand was pr epped and draped in the usual sterile fashion. Approximately 5 ml of buffered 1% lidocaine were infu sed for local anesthesia. Under direct fluoroscopic guidance, a 22 gauge spinal needle was advanced percutaneously into the right hand . Approximately 7 ml of a mixture of 6 ml of bupivicaine, 5 ml of Omnipaque 300 contrast, and 0.1 ml of gadolinium contrast were injected. A spot film was obtained t o document placement of the contrast within the joint capsule. The needle was removed. The patient tolerated the procedure well. There were no immediate complications. Home-care instruct ions were reviewed with the patient prior to the patient's discharge from the fluoroscopy suite. The patient verbally affirmed understanding of these instructions. Impression: Technically successful fluoroscopically guided right hand arthrogram. The patient was transported t o MRI for further imaging at the completion of the procedure. procedure y dr barrios.
== END 2025-06-21 23:59 | disposition home or self-care (01) ==
LOC: RAD 06:38
PROVIDERS: ATTEND Family Medicine Sports Medicine
DX: M18.11 Unilateral primary osteoarthritis of first carpometacarpal joint, right hand (principal); M79.641 Pain in right hand; M77.9 Enthesopathy, unspecified; Z79.899 Other long term (current) drug therapy; Z98.890 Other specified postprocedural states
CPT/HCPCS: 25246; 77002; J0702

== ENCOUNTER 2025-08-30 09:21 | Outpatient (CLI) | payer BC ==
[2025-08-30 10:31] LABS: MEAN PLATELET VOLUME 6.9 FL (7.4-10.4); RED CELL DISTRIBUTION WIDTH 12.1 % (11.5-14.5)
[2025-08-30 11:01] LABS: CHOL/HDL RATIO 4.6 (0.00-4.99); CREATININE 0.77 MG/DL (0.40-0.90); LDL CHOLESTEROL 185 MG/DL (50-100); TOTAL CARBON DIOXIDE 29.6 MMOL/L (24-32); eGFR 77 ML/MIN
[2025-09-01 06:20] LABS: ESTRADIOL 9.9 pg/mL (.); PROGESTERONE 0.3 ng/mL (.); TESTOSTERONE, SERUM 178 ng/dL (4-50)
[2025-09-03 15:21] LABS: TESTOSTERONE, FREE, DIRECT 2.2 pg/mL (0.0-4.2)
== END 2025-08-30 23:59 | disposition home or self-care (01) ==
LOC: LAB 09:21
PROVIDERS: ATTEND Nurse Practitioner
DX: E78.5 Hyperlipidemia, unspecified (principal); N95.1 Menopausal and female climacteric states; R68.82 Decreased libido; R53.83 Other fatigue; Z51.81 Encounter for therapeutic drug level monitoring
CPT/HCPCS: 36415; 80053; 80061; 82670; 84144; 84402; 84403; 84443; 85025

== ENCOUNTER 2025-10-14 14:56 | Outpatient (CLI) | payer BC | END 2025-10-14 23:59 | disposition home or self-care (01) | LOC: RAD 14:56 | PROVIDERS: ATTEND Nurse Practitioner | DX: R53.83 Other fatigue (principal); Z51.81 Encounter for therapeutic drug level monitoring; E03.9 Hypothyroidism, unspecified | CPT/HCPCS: 36415; 84439; 84443; 84481; 84482 ==